=== PATIENT | male | born 1930 | race Caucasian/White ===

== ENCOUNTER → 2016-11-07 | Outpatient (CLI) | payer MEDICARE ==
[~2016-11-07] MED LIST: DIOVAN; WATER PILL
[2016-11-07 09:36] LABS: BUN/CREATININE RATIO 20.71; CALCIUM SERUM 9.1 mg/dL (8.4-10.2); CREATININE SERUM 1.4 mg/dL (0.6-1.4); GLOM FILT RATE Estimated 45.8 mL/min (>60); POTASSIUM 3.8 mmol/L (3.5-5.1)
[2016-11-09 08:59] LABS: MICROALB UR (PNL) 6.5 mg/dL (***)
== END | disposition home or self-care (01) ==
LOC: SLAB 08:57
PROVIDERS: Internal Medicine Allergy & Immunology
DX: E78.00 Pure hypercholesterolemia, unspecified (principal); I10 Essential (primary) hypertension
CPT/HCPCS: 36415; 80048; 80061; 82043; 82570

== ENCOUNTER 2016-12-01 18:42 | Emergency (ER) | payer MEDICARE | END 2016-12-01 18:46 | disposition home or self-care (01) | LOC: SED 18:42 | DX: L50.0 Allergic urticaria (principal) | CPT/HCPCS: 99282 ==